=== PATIENT | male | born 1995 | race Caucasian/White ===

== ENCOUNTER 2016-11-18 12:16 | Emergency (ER) | payer OTHER ==
[~2016-11-18] VITALS: Ht 188 cm; Wt 72.7 kg
[~2016-11-18 12:16] MED LIST: MOTRIN 800800 MG/TAB PO; NO HOME MEDICATIONS
[2016-11-18 12:20] VITALS: BP 119/66; TEMP 97.7
[2016-11-18] MEDS ORDERED: NORCO 325 MG-51 TAB PO (14:17)
[2016-11-18 14:22] VITALS: PULSE 63
== END 2016-11-18 14:25 | disposition home or self-care (01) ==
LOC: COL.ER 12:16
DX: S90.852A Superficial foreign body, left foot, initial encounter (principal); F17.210 Nicotine dependence, cigarettes, uncomplicated; W45.8XXA Other foreign body or object entering through skin, initial encounter; Y93.01 Activity, walking, marching and hiking